=== PATIENT | male | born 1990 | race Caucasian/White ===

== ENCOUNTER 2017-08-31 15:25 | Emergency (ER) | payer OTHER ==
[~2017-08-31] VITALS: Ht 172.7 cm; Wt 62.6 kg
[2017-08-31 18:19] VITALS: BP 127/77
== END 2017-08-31 18:19 | disposition home or self-care (01) ==
LOC: ED 15:25
DX: R59.0 Localized enlarged lymph nodes (principal)
CPT/HCPCS: Q0092